=== PATIENT | male | born 1980 | race Caucasian/White ===

== ENCOUNTER 2022-02-09 06:53 | Day surgery (SDC) | payer BC ==
[2022-02-09] MEDS ORDERED: ONDANSETRON 4 MG/2 ML VIAL ONE ×3 (08:09→11:33)
[2022-02-09] MEDS ORDERED: MORPHINE 4 MG/ML SYR ONE ×2 (08:09→10:27)
[2022-02-09 08:10] LABS: Absolute Lymphocytes (CBC) 2.6 K/uL (0.7-4.9); Hematocrit 45.5 % (39.6-49.0); MPV 7.8 fL (7.6-11.3)
[2022-02-09] MEDS ORDERED: FAMOTIDINE 20 MG/2 ML VIAL IV ONE (08:21)
[2022-02-09 08:23] LABS: Urine Amorphous Sediment 2+ /HPF (NONE SEEN); Urine Bacteria NONE SEEN /HPF (NONE SEEN); Urine RBC <5 /HPF (NONE SEEN)
[2022-02-09 08:25] LABS: Albumin 3.9 g/dL (3.4-5.0); Bilirubin Total 0.2 mg/dL (0.2-1.0); Potassium 4.2 mmol/L (3.5-5.1); Protein, Total 7.7 g/dL (6.4-8.2)
--- NOTE | 2022-02-09 08:53 | RAD REPORT ---
EXAM DESCRIPTION: CTAbdomen Pelvis W Contrast - 02/09/2022 8:47 am CLINICAL HISTORY: Abdominal pain. Abdominal pain, acute, nonlocalized COMPARISON: No comparisons TECHNIQUE: Biphasic CT imaging of the abdomen and pelvis was performed with 100 ml non-ionic IV cont rast. All CT scans are performed using dose optimization technique as appropriate and may include automated exposure control or mA/KV adjustment according to patient size. FINDINGS: The lung bases are clear. The liver, spleen, pancreas, adrenal glands and kidneys are within normal limits. No bowel obstruction, free air, free fluid or abscess. The appendix is enlarged to 16 mm and contain s an appendicolith. No evidence of significant lymphadenopathy. No suspicious bony findings. IMPRESSION: Acute appendicitis.
[2022-02-09] MEDS ORDERED: NA CHLORIDE 0.9% 100 ML IV ONE (09:39)
[2022-02-09] MEDS ORDERED: PIPERACIL/TAZO 3.375 GM VIAL IV ONE (09:39)
--- NOTE | 2022-02-09 09:40 | ER ---
Nurse's Notes [facility] Name: Sloan Wilson Jr Age: 41 yrs Sex: Male : 1980 Arrival Date: 02/09/2022 Time: 07:15 Bed 17 Private MD: Diagnosis: Acute appendicitis with localized peritonitis;Lower abdominal pain, unspecified Presentation: 02/09 07:52 Chief complaint: Patient states: Diffuse abdominal pain since yesterday. Coronavirus jl7 screen: At this time, the client does not indicate any symptoms associated with coronavirus-19. Ebola Screen: No symptoms or risks identified at this time. Initial Sepsis Screen: Does the patient meet any 2 criteria? No. Patient's initial sepsis screen is negative. Does the patient have a suspected source of infection? No. Patient's initial sepsis screen is negative. Risk Assessment: Do you want to hurt yourself or someone else? Patient reports no desire to harm self or others. Onset of symptoms was February 08, 2022. 07:52 Method Of Arrival: Wheelchair [facility] 07:52 Acuity: ARMANDO 3 jl7 Triage Assessment: 07:53 General: Appears in no apparent distress. uncomfortable, Behavior is calm, cooperative, jl7 appropriate for age. Pain: Complains of pain in abdomen diffusely Pain currently is 10 out of 10 on a pain scale. GI: Reports lower abdominal pain, upper abdominal pain. Historical: - Allergies: 07:53 No Known Allergies; jl7 - Home Meds: 07:53 None [Active]; jl7 - PMHx: 07:53 None; jl7 - Immunization history:: Client reports having NOT received the Covid vaccine. - Social history:: Smoking status: Patient denies any tobacco usage or history of. Screenin:10 Abuse screen: Denies threats or abuse. Denies injuries from another. [facility] 08:10 Nutritional screening: No deficits noted. Tuberculosis screening: No symptoms or risk [facility] factors identified. Fall Risk None identified. Assessment: 08:10 General: Appears uncomfortable, well groomed, Behavior is cooperative, anxious. Pain: [facility] Complains of pain in abdomen diffusely Pain currently is 10 out of 10 on a pain scale. Quality of pain is described as crampy, gnawing, Pain began 2-3 days ago. Is continuous, Aggravated by eating, repositioning. 08:10 GI: Bowel sounds present X 4 quads. Abd is soft X 4 quads Abdomen is tender to jh6 palpation X 4 quads. 09:30 Reassessment: No changes from previously documented assessment. Patient and/or family jh6 updated on plan of care and expected duration. Pain level reassessed. Patient is alert, oriented x 3, equal unlabored respirations, skin warm/dry/pink. 10:43 General: PRE OP NURSE AT BEDSIDE. . jh6 Vital Signs: 07:52 BP 146 / 94; Pulse 70; Resp 17; Temp 98.2; Pulse Ox 100% on R/A; Weight 88.45 kg; jl7 Height 6 ft. 1 in. (185.42 cm); Pain 10/10; 10:40 BP 132 / 84; Pulse 67; Resp 17; Pulse Ox 100% ; Pain 4/10; jh6 07:52 Body Mass Index 25.73 (88.45 kg, 185.42 cm) jl7 ED Course: 07:15 Patient arrived in ED. ds1 07:43 Jac Gonzalez DO is Attending Physician. ms3 07:48 Adriana Smith, BOO is Primary Nurse. jh6 07:53 Triage completed. jl7 07:53 Arm band placed on right wrist. jl7 08:10 Bed in low position. Call light in reach. Side rails up X 1. Adult w/ patient. jh6 08:10 Inserted saline lock: 20 gauge in right antecubital area, using aseptic technique. jh6 Blood collected. 08:10 No provider procedures requiring assistance completed. jh6 08:[address] jh6 08:49 CT Abd/Pelvis - IV Contrast Only In Process Unspecified. EDMS 09:31 Urine Dipstick--Ancillary (enter results) Sent. ww 09:39 Jonnathan Gibbons MD is Hospitalizing Provider. ms3 Administered Medications: 08:07 Drug: Zofran (Ondansetron) 4 mg Route: IVP; Site: right antecubital; jh6 08:07 Drug: morphine 4 mg Route: IVP; Site: right antecubital; jh6 08:20 Drug: Pepcid (famotidine) 20 mg Route: IVP; Site: right antecubital; jh6 09:41 Drug: Zosyn (piperacillin-tazobactam) 3.375 grams Route: IVPB; Infused Over: 60 mins; [facility] Site: right antecubital; 10:35 Drug: morphine 4 mg Route: IVP; Site: right antecubital; [facility] Outcome: 09:40 Decision to Hospitalize by Provider. ms3 10:46 Patient left the ED. [facility] Signatures: Dispatcher [employer] EDOH Lali Guevara ds1 Guanako Serna RN RN jl7 Jac Gonzalez DO DO ms3 Adriana Smith RN RN 6 Cherelle Pinedo RN RN ww
--- NOTE | 2022-02-09 09:40 | EDPHYS ---
Physician Documentation [facility] Name: Sloan Wilson Jr Age: 41 yrs Sex: Male : 1980 Arrival Date: 02/09/2022 Time: 07:15 Bed 17 Private MD: ED Physician Jac Gonzalez HPI: 02/09 07:59 This 41 yrs old Male presents to ER via Wheelchair with complaints of Abdominal Pain. ms3 07:59 The patient presents with abdominal pain in the lower abdomen. Onset: The ms3 symptoms/episode began/occurred acutely, yesterday. The symptoms do not radiate. Associated signs and symptoms: Pertinent negatives: nausea and vomiting, diarrhea, fever. The symptoms are described as achy. Modifying factors: The symptoms are alleviated by Laying down. the symptoms are aggravated by walking, sitting up. 41-year-old male with a past medical history presents for lower abdominal pain that began yesterday. Patient states his pain is a 10/10 described as aching. Patient denies fevers, chills, diarrhea. Patient states the pain is better when laying down. Patient states the pain is worse when walking or sitting up.. Historical: - Allergies: 07:53 No Known Allergies; jl7 - Home Meds: 07:53 None [Active]; jl7 - PMHx: 07:53 None; jl7 - Immunization history:: Client reports having NOT received the Covid vaccine. - Social history:: Smoking status: Patient denies any tobacco usage or history of. ROS: 07:59 Constitutional: Negative for fever, and chills. ENT: Negative for injury, pain, and ms3 discharge, Neck: Negative for injury, pain, and swelling, Cardiovascular: Negative for chest pain, and palpitations. Respiratory: Negative for shortness of breath, cough, wheezing, and pleuritic chest pain, MS/Extremity: Negative for injury and deformity, Skin: Negative for injury, rash, and discoloration, Neuro: Negative for headache, weakness, numbness, tingling. 07:59 Constitutional: 07:59 Abdomen/GI: Positive for abdominal pain. 07:59 All other systems are negative. Exam: 07:59 Head/Face: Normocephalic, atraumatic. Eyes: Pupils equal round and reactive to light, ms3 extra-ocular motions intact. Lids and lashes normal. Conjunctiva and sclera are non-icteric and not injected. Periorbital areas with no swelling, redness, or edema. Neck: Trachea midline, no cervical lymphadenopathy. Supple, full range of motion without nuchal rigidity, or vertebral point tenderness. No Meningismus. Chest/axilla: Normal chest wall appearance and motion. Nontender with no deformity. Cardiovascular: Regular rate and rhythm with a normal S1 and S2. No gallops, murmurs, or rubs. Normal PMI, no JVD. No pulse deficits. Respiratory: Lungs have equal breath sounds bilaterally, clear to auscultation and percussion. No rales, rhonchi or wheezes noted. No increased work of breathing, no retractions or nasal flaring. Skin: Warm, dry with normal turgor. Normal color with no rashes, no lesions, and no evidence of cellulitis. MS/ Extremity: Pulses equal, no cyanosis. Neurovascular intact. Full, normal range of motion. 07:59 Constitutional: The patient appears in obvious pain. Vital Signs: 07:52 BP 146 / 94; Pulse 70; Resp 17; Temp 98.2; Pulse Ox 100% on R/A; Weight 88.45 kg; jl7 Height 6 ft. 1 in. (185.42 cm); Pain 10/10; 10:40 BP 132 / 84; Pulse 67; Resp 17; Pulse Ox 100% ; Pain 4/10; jh6 07:52 Body Mass Index 25.73 (88.45 kg, 185.42 cm) jl7 MDM: 07:43 Patient medically screened. ms3 09:40 Differential diagnosis: appendicitis, bowel obstruction, diverticulitis. Data reviewed: ms3 vital signs, nurses notes, lab test result(s), radiologic studies, CT scan. Data interpreted: Pulse oximetry: on room air is 100 %. Interpretation: normal. Counseling: I had a detailed discussion with the patient and/or guardian regarding: the historical points, exam findings, and any diagnostic results supporting the discharge/admit diagnosis, lab results, radiology results, the need for further work-up and treatment in the hospital. ED course: Discussed labs, CT findings with patient. Patient agrees with admission and surgery. Awaiting return call from Dr Gibbons. 10:22 ED course: Discussed case with Dr Gibbons and he will see patient in PACU. Patient to be ms3 placed in obs under Dr Gibbons. 02/09 07:52 Order name: CBC with Diff; Complete Time: 09:29 ms3 02/09 07:52 Order name: CMP; Complete Time: 09:29 ms3 02/09 07:52 Order name: Lipase; Complete Time: 09:29 ms3 02/09 07:52 Order name: Urine Microscopic Only; Complete Time: 09:29 ms3 02/09 08:21 Order name: Urine Dipstick--Ancillary (enter results) bd 02/09 08:23 Order name: Urine Dipstick-Ancillary; Complete Time: 09:29 EDMS 02/09 07:52 Order name: CT Abd/Pelvis - IV Contrast Only; Complete Time: 09:29 ms3 02/09 07:52 Order name: IV Saline Lock; Complete Time: 07:57 ms3 02/09 10:11 Order name: COVID-19 SARS RT PCR (Document "Date of Onset" if Symptomatic) ss 02/09 07:52 Order name: Labs collected and sent; Complete Time: 07:57 ms3 02/09 07:52 Order name: Urine Dipstick-Ancillary (obtain specimen); Complete Time: 07:57 ms3 Administered Medications: 08:07 Drug: Zofran (Ondansetron) 4 mg Route: IVP; Site: right antecubital; 6 08:07 Drug: morphine 4 mg Route: IVP; Site: right antecubital; 6 08:20 Drug: Pepcid (famotidine) 20 mg Route: IVP; Site: right antecubital; 6 09:41 Drug: Zosyn (piperacillin-tazobactam) 3.375 grams Route: IVPB; Infused Over: 60 mins; 6 Site: right antecubital; 10:35 Drug: morphine 4 mg Route: IVP; Site: right antecubital; 6 Disposition Summary: 02/09/22 09:40 Hospitalization Ordered Hospitalization Status: Observation ms3 Provider: Jonnathan Gibbons ms3 Location: Telemetry/MedSurg (observation) ms3 Condition: Stable ms3 Problem: new ms3 Symptoms: are unchanged ms3 Bed/Room Type: Standard ms3 Room Assignment: ms3 Diagnosis - Acute appendicitis with localized peritonitis ms3 - Lower abdominal pain, unspecified ms3 Forms: - Medication Reconciliation Form ms3 - SBAR form ms3 Signatures: Dispatcher [employer] Guanako Shelton, RN RN jl7 Jac Gonzalez DO DO ms3 Adriana Smith RN RN jh6
[2022-02-09] MEDS ORDERED: propofoL 200 MG/20 ML VIAL IV ONE (10:48)
[2022-02-09] MEDS ORDERED: ROCURONIUM 50 MG/5 ML VIAL IV ONE (10:48)
[2022-02-09] MEDS ORDERED: FENTANYL CITR 100 MCG/2 ML ONE (10:48)
[2022-02-09] MEDS ORDERED: LIDOCAINE 2% MPF 5 ML VIAL ONE (10:48)
[2022-02-09] MEDS ORDERED: MIDAZOLAM HCL 2 MG/2 ML INJ ONE (10:49)
[2022-02-09] MEDS: BUPIVACAINE 0.5% PF 10 ML VIAL ONE ×2 (10:53→11:30)
[2022-02-09] MEDS ORDERED: Ringers Lactate 1,000 ML IV ONE (10:56)
--- NOTE | 2022-02-09 11:13 | P.HP ---
Date of Service: 02/09/22 Chief complaint: Abdominal pain History of present Illness: 41-year-old male comes to the ER with 24-hour history of diffuse abdominal pain associated with anorexia. He denies nausea, vomiting, diarrhea, constipation, blood per rectum, dysuria or hematuria. Patient denies sore throat, runny nose, cough, headaches, dizziness, chest pain, fever or chills. Review of systems: Otherwise unremarkable Past medical history: Negative Past surgical history: Bilateral inguinal hernia repair, excision right arm mass Allergies: None Social history: Denies smoking or drinking Family history: Son with leukemia, heart disease in parents and grandparents Vital signs: Stable, afebrile Physical exam: Awake alert oriented x3 Head and neck: Cranial nerves II through XII grossly within normal limits, no neck masses, no JVD, throat clear and neck supple. Chest: Clear Heart: S1-S2 Abdomen: Soft, diffuse tenderness with rebound in the right lower quadrant, nondistended, positive bowel sounds Extremity: Neurovascular intact, nontender Neuro: Nonfocal Diagnostic data: Laboratory data and CAT scan reviewed. Assessment: Acute appendicitis Plan/recommendation: Admit, n.p.o., IV fluids, IV antibiotics and to the OR for laparoscopic appendectomy possible open. Patient understands risk benefits and alternatives and agrees to procedure. CC:
[2022-02-09] MEDS ORDERED: dexAMETHasone 4 MG/ML VIAL ONE (11:33)
[2022-02-09] MEDS ORDERED: MORPHINE 10 MG/ML VIAL ONE (11:43)
[2022-02-09] MEDS ORDERED: GLYCOPYRROLATE 0.2 MG/ML SYR ONE (11:54)
[2022-02-09] MEDS ORDERED: NEOSTIGMINE 1 MG/ML -10 ML VIAL ONE (11:54)
[2022-02-09] MEDS ORDERED: Mastisol Adhesive Liq ONE (11:55)
--- NOTE | 2022-02-09 11:58 | P.OP ---
Preop diagnosis: Acute appendicitis Postop diagnosis: Same Procedure performed: Laparoscopic appendectomy Surgeon: Jonnathan Gibbons MD Fisher Swordfish: Jose Guadalupe WATSON Estimated blood loss: Minimal Specimen: Appendix Findings: Acute suppurative appendicitis Anesthesia: General Complications: None Drains: None Fluids and blood products: Nonapplicable Disposition: Recovery room Operative note: Patient brought to the OR and placed in the supine position. General anesthesia begun. Patient prepped and draped in the usual usual sterile fashion. Marcaine 0.5% infiltrated locally. 15 blade used to make a 1 cm supraumbilical midline incision. Subcutaneous tissue divided. Fascia identified and divided. #1 Vicryl stay suture placed. Peritoneal cavity entered with sharp and blunt dissection. 12 mm trocar placed into the peritoneal cavity under direct vision. Pneumoperitoneum established. 2 5 mm millimeter trocar placed in the peritoneal cavity, 1 in the suprapubic region a nd 1 in the left lower quadrant. Laparoscopy revealed acute suppurative appendicitis, uncomplicated. Base of the appendix and the cecum clearly identified. Mesoappendix and base of the appendix divided utilizing Endo MEL stapling device. And then the appendix retrieved through the umbilicus via Endo Catch bag. Right lower quadrant irrigated effluent clear no evidence of bleeding or bile leakage appreciated. All trochars removed under direct vision. Stay sutures tied to each other reapproximate the fascial defect. Subcutaneous wounds irrigated bleeding and bleeding controlled with cautery. 3-0 chromic used to reapproximate subcutaneous tissue and closed skin. Sterile dressing applied and patient awakened. Patient taken to recovery room in good general condition. CC:
[2022-02-09] MEDS ORDERED: KETOROLAC 30 MG/ML INJ ONE (11:59)
[2022-02-09] MEDS ORDERED: HYDROCODONE/APAP 7.5/325 MG TAB PO PRN (12:06)
[2022-02-09] MEDS: HYDROMORPHONE HCL 1 MG/ML INJ ONE ×6 (12:25→12:51)
[2022-02-09] MEDS ORDERED: HYDROCODONE/APAP 7.5/325 MG TAB ONE (13:18)
[2022-02-09 13:29] VITALS: BP 449/61; TEMP 97.4; O2SAT 100
[2022-02-13 14:28] LABS: Urine Blood Trace-intact (Negative); Urine Glucose Negative (Negative); Urine Protein Negative (Negative)
== END 2022-02-09 13:45 | disposition home or self-care (01) ==
LOC: ER 06:53 → OR 12:40
PROVIDERS: ATTEND Surgery
PROC: 0DTJ4ZZ Resection of Appendix, Percutaneous Endoscopic Approach (ICD-10-PCS; principal; 2022-02-09 10:30)
DX: K35.80 Unspecified acute appendicitis (principal); R10.9 Unspecified abdominal pain; Z20.822 Contact with and (suspected) exposure to COVID-19
CPT/HCPCS: 85025; 36415; 88304; 83690; 80053; 74177; 96375; 96374; 99284; 44970; U0003; Q9967; J2704; J1100; J2710; J2543; J2250; J3010; J1170 ×3; J7120; J2405 ×3; J3490; 81003; 81015